=== PATIENT | male | born 1945 | race Hispanic/Latino ===

== ENCOUNTER 2017-10-14 15:42 | Emergency (ER) | payer SELFPAY ==
[2017-10-14 16:53] VITALS: BP 122/66
--- NOTE | 2017-10-14 16:54 | Emergency Department Report ---
ED General Adult HPI - General Chief complaint: Overdose Stated complaint: HEROINE OD Time Seen by Provider: 10/14/17 16:27 Source: patient, EMS Mode of arrival: Stretcher Limitations: No Limitations - History of Present Illness Initial comments: Patient is 71 years old male with past medical history of hypertension. Patient presented to the ER for evaluation of possible heroin injection by his girlfriend. Patient stated that he went to sleep in them to call ambulance and brought him here. Patient denied any symptoms specifically patient denied any chest pain, shortness of breath, fever, weakness or numbness or tingling sensation. Patient denied any bowel or bladder incontinence. As soon as a finish exam patient stated that he does not want to stay and he wanted sign AGAINST MEDICAL ADVICE because he thinks he is fine. I explained to him the dangers of leaving without a good period of observation and blood work. Patient stated that he understood the statements very well but he still wanted to go home he does not give a good explanation for why he is leaving but patient is alert oriented 3 able to make a sound decision. Patient left AGAINST MEDICAL ADVICE. - Related Data Allergies Allergy/AdvReac Type Severity Reaction Status Date / Time No Known Allergies Allergy Verified 10/14/17 16:00 ED Review of Systems ROS: Stated complaint: HEROINE OD Other details as noted in HPI Comment: All other systems reviewed and negative Constitutional: denies: chills, fever Respiratory: denies: cough, orthopnea, shortness of breath, SOB with exertion Cardiovascular: denies: chest pain, palpitations, dyspnea on exertion, orthopnea , edema, syncope, paroxysmal nocturnal dyspnea Gastrointestinal: denies: abdominal pain, nausea, vomiting, diarrhea, constipation, hematemesis, hematochezia Genitourinary: denies: urgency, frequency Skin: denies: rash, lesions, change in color, change in hair/nails Neurological: denies: headache, weakness Psychiatric: denies: anxiety, depression, auditory hallucinations, visual hallucinations, homicidal thoughts, suicidal thoughts ED Past Medical Hx - Past Medical History Previous Medical History?: No - Surgical History Past Surgical History?: No - Social History Smoking Status: Never Smoker Substance Use Type: None, Heroin ED Physical Exam - General Limitations: No Limitations General appearance: alert, in no apparent distress - Head Head exam: Present: atraumatic, normocephalic, normal inspection - Eye Eye exam: Present: normal appearance, PERRL - ENT ENT exam: Present: normal exam, normal orophraynx, mucous membranes moist - Neck Neck exam: Present: normal inspection, full ROM. Absent: tenderness, meningismus, lymphadenopathy, thyromegaly - Respiratory Respiratory exam: Present: normal lung sounds bilaterally. Absent: respiratory distress, wheezes, rales, rhonchi, stridor, chest wall tenderness, accessory muscle use, decreased breath sounds, prolonged expiratory - Cardiovascular Cardiovascular Exam: Present: regular rate, normal rhythm, normal heart sounds - GI/Abdominal GI/Abdominal exam: Present: soft, normal bowel sounds. Absent: distended, tenderness, guarding, rebound, rigid, organomegaly, mass, bruit, pulsatile mass , hernia - Extremities Exam Extremities exam: Present: normal inspection, full ROM, normal capillary refill. Absent: tenderness, pedal edema, joint swelling, calf tenderness - Back Exam Back exam: Present: normal inspection, full ROM. Absent: tenderness, CVA tenderness (R), CVA tenderness (L), muscle spasm, paraspinal tenderness, vertebral tenderness, rash noted - Neurological Exam Neurological exam: Present: alert, oriented X3, CN II-XII intact, normal gait, reflexes normal. Absent: motor sensory deficit - Psychiatric Psychiatric exam: Present: normal affect, normal mood. Absent: depressed, agitated, anxious, flat affect, manic, homicidal ideation, suicidal ideation - Skin Skin exam: Present: warm, intact ED Course Vital Signs 10/14/17 10/14/17 15:54 16:52 Temperature 98.7 F 98.2 F Pulse Rate 72 78 Respiratory 16 18 Rate Blood Pressure 133/70 Blood Pressure 122/66 [Right] O2 Sat by Pulse 94 99 Oximetry - Reevaluation(s) Reevaluation #1: 10/14/17 16:54 Patient denied any suicidal ideation or homicidal ideation. He stated that he used this just to get high and have fun with his girlfriend. Critical care attestation.: If time is entered above; I have spent that time in minutes in the direct care of this critically ill patient, excluding procedure time. ED Disposition Clinical Impression: Substance abuse Disposition: DC-07 LEFT AGAINST MED ADVICE Is pt being admited?: No Condition: Stable Instructions: Polysubstance Abuse (ED)
== END 2017-10-14 16:43 | disposition left against medical advice (07) ==
LOC: ED 15:42
DX: F19.10 Other psychoactive substance abuse, uncomplicated (principal); I10 Essential (primary) hypertension
CPT/HCPCS: 99283

== ENCOUNTER 2018-05-20 13:57 | Emergency (ER) | payer MEDICARE ==
[2018-05-20 14:19] VITALS: BP 137/59
[2018-05-20 15:38] LABS: Basophils # (Auto) 0.1 K/mm3 (0.0-0.1); Basophils % (Auto) 0.8 % (0.0-1.8); Eosinophils # (Auto) 0.4 K/mm3 (0.0-0.4); Eosinophils % (Auto) 5.3 % (0.0-4.3); Hemoglobin 12.3 gm/dl (11.8-15.2); Lymphocytes # (Auto) 2.2 K/mm3 (1.2-5.4); Lymphocytes % (Auto) 29.2 % (13.4-35.0); Mean Corpuscular HGB Conc 33 % (32-34); Mean Corpuscular Hemoglobin 30 pg (28-32); Mean Corpuscular Volume 89 fl (84-94); Monocytes # (Auto) 0.6 K/mm3 (0.0-0.8); Monocytes % (Auto) 7.7 % (0.0-7.3); Platelet Count 207 K/mm3 (140-440); Red Blood Count 4.15 M/mm3 (3.65-5.03); Red Cell Distribution Width 14.6 % (13.2-15.2)
[2018-05-20 16:06] LABS: Calcium 9.1 mg/dL (8.4-10.2)
--- NOTE | 2018-05-20 16:07 | Emergency Department Report ---
ED General Adult HPI - General Chief complaint: Extremity Injury, Lower Stated complaint: SENT BY DOCTOR FOR ULTRASOUND ON LEGS Time Seen by Provider: 05/20/18 15:59 Source: patient Mode of arrival: Wheelchair Limitations: Physical Limitation - History of Present Illness Initial comments: SENT BY PCP FOR ULTRASOUND OF LEGS TO RO DVT NO CP NO SOB -: Gradual Location: lower extremity Radiation: non-radiation Associated Symptoms: denies other symptoms. denies: confusion, chest pain, cough, diaphoresis, fever/chills, headaches, loss of appetite, malaise, nausea/ vomiting, rash, seizure, shortness of breath, syncope, weakness Treatments Prior to Arrival: none - Related Data Allergies Allergy/AdvReac Type Severity Reaction Status Date / Time No Known Allergies Allergy Verified 10/14/17 16:00 ED Review of Systems ROS: Stated complaint: SENT BY DOCTOR FOR ULTRASOUND ON LEGS Other details as noted in HPI Comment: All other systems reviewed and negative Constitutional: denies: chills, fever Eyes: denies: eye pain ENT: denies: ear pain, throat pain Respiratory: denies: cough, orthopnea, shortness of breath, SOB with exertion, SOB at rest, stridor Cardiovascular: denies: chest pain, palpitations, dyspnea on exertion, orthopnea Endocrine: denies: excessive sweating, flushing, intolerance to cold, intolerance to heat Gastrointestinal: denies: abdominal pain, nausea, vomiting Genitourinary: denies: urgency, dysuria Musculoskeletal: other (LEG SWELLING). denies: back pain, joint swelling, arthralgia Skin: denies: rash, lesions Neurological: denies: headache, weakness Psychiatric: denies: anxiety, depression Hematological/Lymphatic: denies: easy bleeding ED Past Medical Hx - Past Medical History Hx Hypertension: Yes - Surgical History Past Surgical History?: No Additional Surgical History: RIGHT KNEE - Family History Family history: no significant - Social History Smoking Status: Never Smoker Substance Use Type: None ED Physical Exam - General Limitations: Physical Limitation General appearance: alert, in no apparent distress - Head Head exam: Present: normocephalic - Eye Eye exam: Present: normal appearance Pupils: Present: normal accommodation - ENT ENT exam: Present: mucous membranes moist - Neck Neck exam: Present: normal inspection - Respiratory Respiratory exam: Present: normal lung sounds bilaterally - Cardiovascular Cardiovascular Exam: Present: regular rate - GI/Abdominal GI/Abdominal exam: Present: soft, normal bowel sounds - Rectal Rectal exam: Present: deferred - Extremities Exam Extremities exam: Present: normal inspection, full ROM, normal capillary refill , pedal edema (TR B), other (PLUS2 DP PT B). Absent: tenderness, joint swelling , calf tenderness (NEG HOMAS) - Back Exam Back exam: Present: normal inspection, full ROM. Absent: tenderness, CVA tenderness (R) - Neurological Exam Neurological exam: Present: alert, oriented X3, CN II-XII intact, normal gait. Absent: motor sensory deficit - Psychiatric Psychiatric exam: Present: normal affect, normal mood. Absent: depressed, agitated - Skin Skin exam: Present: warm, dry, intact, normal color. Absent: rash, cyanosis, diaphoretic ED Course Vital Signs 05/20/18 14:12 Temperature 98.7 F Pulse Rate 53 L Respiratory 20 Rate Blood Pressure 137/59 O2 Sat by Pulse 96 Oximetry ED Medical Decision Making - Lab Data Result diagrams: 05/20/18 15:31 05/20/18 15:31 - EKG Data -: EKG Interpreted by Me EKG shows normal: sinus rhythm - EKG Data Interpretation: no acute changes - Radiology Data Radiology results: report reviewed, image reviewed - Differential Diagnosis RO DVT SENT BY MD Critical care attestation.: If time is entered above; I have spent that time in minutes in the direct care of this critically ill patient, excluding procedure time. ED Disposition Clinical Impression: Leg swelling Disposition: DC-01 TO HOME OR SELFCARE Is pt being admited?: No Does the pt Need Aspirin: No Condition: Stable Additional Instructions: FOLLOW UP WITH PCP IN AM. LET HIM KNOW YOUR ULTRASOUND WAS NEG FOR DVT. HE CAN OBTAIN COPIES OF ALL LABS BY CALLING US FOR RECORDS DIET PER ROUTINE ACTIVITY TOLERATED HYDRATE WELL MEDS PER ROUTINE. Referrals: PRIMARY CARE, [Primary Care Provider] - 3-5 Days Time of Disposition: 19:29
--- NOTE | 2018-05-20 16:50 | XRay Report ---
FINAL REPORT EXAM: XR CHEST ROUTINE 2V HISTORY: sob TECHNIQUE: upright single view chest PRIORS: None. FINDINGS: Cardiac and mediastinal contours are unremarkable. No focal pulmonary infiltrate is identified. No pleural fluid collection seen. Pulmonary vasculature is unremarkable. Noted is a left shoulder prosthesis. IMPRESSION: Left shoulder prosthesis No acute abnormality identified in the chest
--- NOTE | 2018-05-22 14:27 | Vascular Lab Report ---
LOWER EXTREMITY VENOUS DUPLEX: REASON FOR EXAM: Pain and swelling of the lower extremities. COMMENTS ON THE RIGHT: All veins visualized are freely compressible without evidence of internal echogenicity. Flow is spontaneous and phasic throughout. 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 COMMENTS ON THE LEFT: All veins visualized are freely compressible without evidence of internal echogenicity. Flow is spontaneous and phasic throughout. A soft tissue change in the left knee area is consistent with a Berg's cyst. IMPRESSION: No evidence of acute or chronic deep venous thrombosis in either lower extremity. 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 A soft tissue change in the left knee area is consistent with a Berg's cyst.
== END 2018-05-20 19:45 | disposition home or self-care (01) ==
LOC: ED 13:57
DX: M79.89 Other specified soft tissue disorders (principal); I10 Essential (primary) hypertension
CPT/HCPCS: 36415; 71046; 80048; 83880; 85025; 93970; 99284

== ENCOUNTER 2020-07-25 12:18 | Emergency (ER) | payer MEDICARE ==
--- NOTE | 2020-07-25 14:28 | Emergency Department Report ---
<SHANE FAGAN - Last Filed: 07/25/20 22:10> ED Altered Mental Status HPI - General Chief Complaint: Altered Mental Status Stated Complaint: NARCOTIC USE Time Seen by Provider: 07/25/20 13:56 - Related Data Previous Rx's Medication Instructions Recorded Last Taken Type Potassium Chloride [K-Dur] 20 meq PO BID #6 tab 07/25/20 Unknown Rx Allergies Allergy/AdvReac Type Severity Reaction Status Date / Time No Known Allergies Allergy Verified 10/14/17 16:00 ED Past Medical Hx - Medications Home Medications: Home Medications Medication Instructions Recorded Confirmed Last Taken Type Potassium Chloride [K-Dur] 20 meq PO BID #6 tab 07/25/20 Unknown Rx ED Course - Reevaluation(s) Reevaluation #2: 07/25/20 22:10 At this time I checked on the patient and he is wide-awake and try to pack of his thing so that he can attempt to go home. I asked him why he was so sleepy and if he had taken too many of his medications he stated that there have been a lot of arguing at his house for the last several days. Patient states he has been awake for approximately 72 hours. He states once he finally went to sleep he was so tired it was hard to wake him. Patient states he is taken the prescribed dose of all of his medications. But the patient states he is well is well rested at this time and would like to go home. Patient be discharged home at this time. - Lab Data Result diagrams: 07/25/20 14:36 07/25/20 14:36 ED Disposition Clinical Impression: Opioid overdose, Chronic pain, Methadone use, Hypokalemia, Sleep deprivation Disposition: DC-01 TO HOME OR SELFCARE Is pt being admited?: No Does the pt Need Aspirin: No Condition: Stable Instructions: Hypokalemia, Chronic Pain, Adult, Opioid Overdose Additional Instructions: Take the medication as prescribed. Follow-up with your doctor or doctor/clinic provided. Return if symptoms worsen as indicated by your discharge instructions. Prescriptions: Potassium Chloride [K-Dur] 20 meq PO BID #6 tab Referrals: PRIMARY CAREMD [Primary Care Provider] - 3-5 Days PANCHO NAILS MD [Staff Physician] - 3-5 Days Time of Disposition: 22:12 <KARTIK WHEATLEY - Last Filed: 07/26/20 22:38> ED Altered Mental Status HPI - General Source: patient, EMS Mode of arrival: Stretcher Limitations: No Limitations - History of Present Illness Initial Comments: 74-year-old male with chronic pain currently on methadone and oxycodone presents to the hospital with episode of alteration in mental status. I called to speak to patient's daughter on the phone who states that patient was excessively drowsy this morning. She was intimately able to arouse him but he will fall right back to sleep. Patient given 2 mg of Narcan by EMS with improvement in mental status. Patient uses a wheelchair due to chronic leg pain with history of right knee replacement. He complains of bilateral lower extremity leg edema for at least 2 months and is currently on Lasix. He states his leg edema actually better than usual. As per previous medical record review patient has had leg edema LE since 2018 and was ruled out for DVT at that time and on a separate visit in 2018 he presented here status post heroin overdose. Patient denies intentional suicidal ideation and does not recall what happened today and why he is in the hospital. He states he typically takes Roxicodone 20 mg 3 times a day and has already taken 2 doses today. He did not mention methadone use initially. He currently complains of chronic bilateral lower extremity pain. Daughter states patient has not been exhibiting suicidal behavior. Patient states he s is drowsy because he has not been sleeping much lately. Patient's daughter number is [phone] ED Review of Systems ROS: Stated complaint: NARCOTIC USE Other details as noted in HPI Comment: All other systems reviewed and negative ED Past Medical Hx - Past Medical History Hx Hypertension: Yes - Surgical History Additional Surgical History: RIGHT KNEE - Social History Smoking Status: Current Every Day Smoker ED Physical Exam - General Limitations: No Limitations - Other Other exam information: General: No acute distress Head: Atraumatic Eyes: normal appearance ENT: Moist mucous membranes Neck: Normal appearance, no midline tenderness Chest: Clear to auscultation bilaterally CV: Regular rate and rhythm Abdomen: Soft, normal bowel sounds, nontender, nondistended, no rebound or guarding Back: Normal inspection Extremity: 1-2+ pitting bilateral lower extremity edema, no leg asymmetry or calf tenderness Neuro: Alert O x 3, no facial asymmetry, speech clear, no focal deficit, patient chronically has 5/5 upper and lower extremity strength when tested Psych: Appropriate behavior Skin: Keloid formation to anterior chest ED Course Vital Signs 07/25/20 07/25/20 13:30 20:00 Temperature 97.7 F 97.8 F Pulse Rate 94 H 90 Respiratory 18 20 Rate Blood Pressure 129/53 128/61 [Right] O2 Sat by Pulse 98 97 Oximetry - Reevaluation(s) Reevaluation #1: 07/25/20 18:49 Patient was fairly alert during initial assessment then throughout the rest of her ED stay patient relatively easily arousable to tactile stimulation but then falls back asleep. Room air saturation 94 to 98%. - Lab Data Result diagrams: 07/25/20 14:36 07/25/20 14:36 Lab Results 07/25/20 07/25/20 07/25/20 Range/Units 14:36 14:36 14:36 WBC 13.1 H (4.5-11.0) K/mm3 RBC 4.55 (3.65-5.03) M/mm3 Hgb 13.5 (11.8-15.2) gm/dl Hct 40.9 (35.5-45.6) % MCV 90 (84-94) fl MCH 30 (28-32) pg MCHC 33 (32-34) % RDW 14.6 (13.2-15.2) % Plt Count 193 (140-440) K/mm3 Lymph % (Auto) 10.6 L (13.4-35.0) % Branch % (Auto) 6.7 (0.0-7.3) % Eos % (Auto) 2.5 (0.0-4.3) % Baso % (Auto) 0.4 (0.0-1.8) % Lymph # (Auto) 1.4 (1.2-5.4) K/mm3 Branch # (Auto) 0.9 H (0.0-0.8) K/mm3 Eos # (Auto) 0.3 (0.0-0.4) K/mm3 Baso # (Auto) 0.1 (0.0-0.1) K/mm3 Seg Neutrophils % 79.8 H (40.0-70.0) % Seg Neutrophils # 10.4 H (1.8-7.7) K/mm3 Sodium 137 (137-145) mmol/L Potassium 2.7 L* (3.6-5.0) mmol/L Chloride 94.9 L (98-107) mmol/L Carbon Dioxide 28 (22-30) mmol/L Anion Gap 17 mmol/L BUN 55 H (9-20) mg/dL Creatinine 1.3 (0.8-1.3) mg/dL Estimated GFR 54 ml/min BUN/Creatinine Ratio 42 % Glucose 118 H (75-100) mg/dL Calcium 9.4 (8.4-10.2) mg/dL Magnesium (1.7-2.3) mg/dL Total Bilirubin 0.40 (0.1-1.2) mg/dL AST 31 (5-40) units/L ALT 22 (7-56) units/L Alkaline Phosphatase 83 (35-129) units/L NT-Pro-B Natriuret Pep 304.0 (0-900) pg/mL Total Protein 8.1 (6.3-8.2) g/dL Albumin 4.1 (3.9-5) g/dL Albumin/Globulin Ratio 1.0 % Urine Color (Yellow) Urine Turbidity (Clear) Urine pH (5.0-7.0) Ur Specific [place] (1.003-1.030) Urine Protein (Negative) mg/dL Urine Glucose (UA) (Negative) mg/dL Urine Ketones (Negative) mg/dL Urine Blood (Negative) Urine Nitrite (Negative) Ur Reducing Substances Urine Bilirubin (Negative) Urine Ictotest (Negative) Urine Urobilinogen (<2.0) mg/dL Ur Leukocyte Esterase (Negative) Urine WBC (Auto) (0.0-6.0) /HPF Urine RBC (Auto) (0.0-6.0) /HPF U Epithel Cells (Auto) (0-13.0) /HPF Hyaline Casts /LPF Urine Mucus /HPF Salicylates < 0.3 L (2.8-20.0) mg/dL Urine Opiates Screen Urine Methadone Screen Acetaminophen (10.0-30.0) ug/mL Ur Barbiturates Screen Ur Phencyclidine Scrn Ur Amphetamines Screen U Benzodiazepines Scrn Urine Cocaine Screen U Marijuana (THC) Screen Drugs of Abuse Note Plasma/Serum Alcohol (0-0.07) % 07/25/20 07/25/20 07/25/20 Range/Units 14:36 14:36 Unknown WBC (4.5-11.0) K/mm3 RBC (3.65-5.03) M/mm3 Hgb (11.8-15.2) gm/dl Hct (35.5-45.6) % MCV (84-94) fl MCH (28-32) pg MCHC (32-34) % RDW (13.2-15.2) % Plt Count (140-440) K/mm3 Lymph % (Auto) (13.4-35.0) % Branch % (Auto) (0.0-7.3) % Eos % (Auto) (0.0-4.3) % Baso % (Auto) (0.0-1.8) % Lymph # (Auto) (1.2-5.4) K/mm3 Branch # (Auto) (0.0-0.8) K/mm3 Eos # (Auto) (0.0-0.4) K/mm3 Baso # (Auto) (0.0-0.1) K/mm3 Seg Neutrophils % (40.0-70.0) % Seg Neutrophils # (1.8-7.7) K/mm3 Sodium (137-145) mmol/L Potassium (3.6-5.0) mmol/L Chloride (98-107) mmol/L Carbon Dioxide (22-30) mmol/L Anion Gap mmol/L BUN (9-20) mg/dL Creatinine (0.8-1.3) mg/dL Estimated GFR ml/min BUN/Creatinine Ratio % Glucose (75-100) mg/dL Calcium (8.4-10.2) mg/dL Magnesium (1.7-2.3) mg/dL Total Bilirubin (0.1-1.2) mg/dL AST (5-40) units/L ALT (7-56) units/L Alkaline Phosphatase (35-129) units/L NT-Pro-B Natriuret Pep (0-900) pg/mL Total Protein (6.3-8.2) g/dL Albumin (3.9-5) g/dL Albumin/Globulin Ratio % Urine Color Yellow (Yellow) Urine Turbidity Clear (Clear) Urine pH 6.0 (5.0-7.0) Ur Specific [place] 1.010 (1.003-1.030) Urine Protein <15 mg/dl (Negative) mg/dL Urine Glucose (UA) Negative (Negative) mg/dL Urine Ketones Negative (Negative) mg/dL Urine Blood Negative (Negative) Urine Nitrite Negative (Negative) Ur Reducing Substances Not Reportable Urine Bilirubin Neg (Negative) Urine Ictotest Negative (Negative) Urine Urobilinogen < 2.0 (<2.0) mg/dL Ur Leukocyte Esterase Negative (Negative) Urine WBC (Auto) < 1.0 (0.0-6.0) /HPF Urine RBC (Auto) 1.0 (0.0-6.0) /HPF U Epithel Cells (Auto) < 1.0 (0-13.0) /HPF Hyaline Casts 1 /LPF Urine Mucus Few /HPF Salicylates (2.8-20.0) mg/dL Urine Opiates Screen Urine Methadone Screen Acetaminophen 5.0 L (10.0-30.0) ug/mL Ur Barbiturates Screen Ur Phencyclidine Scrn Ur Amphetamines Screen U Benzodiazepines Scrn Urine Cocaine Screen U Marijuana (THC) Screen Drugs of Abuse Note Plasma/Serum Alcohol < 0.01 (0-0.07) % 07/25/20 07/25/20 Range/Units Unknown Unknown WBC (4.5-11.0) K/mm3 RBC (3.65-5.03) M/mm3 Hgb (11.8-15.2) gm/dl Hct (35.5-45.6) % MCV (84-94) fl MCH (28-32) pg MCHC (32-34) % RDW (13.2-15.2) % Plt Count (140-440) K/mm3 Lymph % (Auto) (13.4-35.0) % Branch % (Auto) (0.0-7.3) % Eos % (Auto) (0.0-4.3) % Baso % (Auto) (0.0-1.8) % Lymph # (Auto) (1.2-5.4) K/mm3 Branch # (Auto) (0.0-0.8) K/mm3 Eos # (Auto) (0.0-0.4) K/mm3 Baso # (Auto) (0.0-0.1) K/mm3 Seg Neutrophils % (40.0-70.0) % Seg Neutrophils # (1.8-7.7) K/mm3 Sodium (137-145) mmol/L Potassium (3.6-5.0) mmol/L Chloride (98-107) mmol/L Carbon Dioxide (22-30) mmol/L Anion Gap mmol/L BUN (9-20) mg/dL Creatinine (0.8-1.3) mg/dL Estimated GFR ml/min BUN/Creatinine Ratio % Glucose (75-100) mg/dL Calcium (8.4-10.2) mg/dL Magnesium 2.20 (1.7-2.3) mg/dL Total Bilirubin (0.1-1.2) mg/dL AST (5-40) units/L ALT (7-56) units/L Alkaline Phosphatase (35-129) units/L NT-Pro-B Natriuret Pep (0-900) pg/mL Total Protein (6.3-8.2) g/dL Albumin (3.9-5) g/dL Albumin/Globulin Ratio % Urine Color (Yellow) Urine Turbidity (Clear) Urine pH (5.0-7.0) Ur Specific [place] (1.003-1.030) Urine Protein (Negative) mg/dL Urine Glucose (UA) (Negative) mg/dL Urine Ketones (Negative) mg/dL Urine Blood (Negative) Urine Nitrite (Negative) Ur Reducing Substances Urine Bilirubin (Negative) Urine Ictotest (Negative) Urine Urobilinogen (<2.0) mg/dL Ur Leukocyte Esterase (Negative) Urine WBC (Auto) (0.0-6.0) /HPF Urine RBC (Auto) (0.0-6.0) /HPF U Epithel Cells (Auto) (0-13.0) /HPF Hyaline Casts /LPF Urine Mucus /HPF Salicylates (2.8-20.0) mg/dL Urine Opiates Screen Presumptive negative Urine Methadone Screen Presumptive positive Acetaminophen (10.0-30.0) ug/mL Ur Barbiturates Screen Presumptive negative Ur Phencyclidine Scrn Presumptive negative Ur Amphetamines Screen Presumptive negative U Benzodiazepines Scrn Presumptive negative Urine Cocaine Screen Presumptive negative U Marijuana (THC) Screen Presumptive negative Drugs of Abuse Note Disclamer Plasma/Serum Alcohol (0-0.07) % - Radiology Data Radiology results: report reviewed CHEST 1 VIEW 2:25 PM INDICATION / CLINICAL INFORMATION: Opiate overdose. Leg pain/edema COMPARISON: 05/20/18. FINDINGS: SUPPORT DEVICES: None. HEART / MEDIASTINUM: The heart size and pulmonary vasculature are normal. LUNGS / PLEURA: Mild linear parenchymal opacity in the right lower lung. The lungs are otherwise clear No pneumothorax. ADDITIONAL FINDINGS: Left shoulder prosthesis. IMPRESSION: Mild subsegmental atelectasis in the right lower lung. CT head/brain wo con INDICATION / CLINICAL INFORMATION: 74 years Male; transient ams. TECHNIQUE: Routine CT head without contrast. All CT scans at this location are performed using CT dose reduction for ALARA by means of automated exposure control. COMPARISON: None. FINDINGS: BRAIN / INTRACRANIAL CONTENTS: No acute hemorrhage, mass effect, midline shift, hydrocephalus, or acute, large territorial infarct. No signs of significant atrophy or chronic infarct. There are mild areas of decreased attenuation in the white matter of the cereb ral hemispheres. These are nonspecific findings and may be related to microangiopathy (hypertension, diabetes, atherosclerosis), given the patient's age. CRANIOCERVICAL JUNCTION: No significant abnormality. ORBITS: No significant abnormality of visualized orbits. SINUSES / MASTOIDS: No significant abnormality in the visualized paranasal sinuses or mastoid air cells. ADDITIONAL FINDINGS: Atherosclerotic disease is seen in the anterior and posterior circulation. Small sebaceous cyst seen in the subcutaneous soft tissues superficial to the posterior parietal bone on the right. IMPRESSION: 1. No focal mass, hemorrhage, hydrocephalus, or acute, large territorial infarct. - Medical Decision Making Patient presents to the hospital with increased drowsiness likely secondary to taking too much of his prescribed methadone and oxycodone. Collateral i nformation also obtained from patient's daughter who lives with him. Patient and daughter both deny suicidal ideation or intentional overdose. Patient ED work-up unremarkable with exception of hypokalemia. CT head unremarkable. Patient sleeping throughout ED stay with adequate oxygenation and arousable to tactile stimulation. Patient be signed out to my colleague Dr. Fagan to reassess mental status prior to discharging patient is more awake he will be discharged back home. Hypokalemia likely secondary to Lasix use. Potassium will prescribe her initial dose provided in the ED Critical Care Time: No Critical care attestation.: If time is entered above; I have spent that time in minutes in the direct care of this critically ill patient, excluding procedure time. ED Disposition Is pt being admited?: No Does the pt Need Aspirin: No
--- NOTE | 2020-07-25 14:50 | XRay Report ---
CHEST 1 VIEW 2:25 PM INDICATION / CLINICAL INFORMATION: Opiate overdose. Leg pain/edema COMPARISON: 05/20/18. FINDINGS: SUPPORT DEVICES: None. HEART / MEDIASTINUM: The heart size and pulmonary vasculature are normal. LUNGS / PLEURA: Mild linear parenchymal opacity in the right lower lung. The lungs are otherwise basim r No pneumothorax. ADDITIONAL FINDINGS: Left shoulder prosthesis. IMPRESSION: Mild subsegmental atelectasis in the right lower lung. Signer Name: Kelby Alarcno MD Signed: 07/25/2020 2:45 PM Workstation Name: [id number]
[2020-07-25 15:49] LABS: Albumin 4.1 g/dL (3.9-5); Calcium 9.4 mg/dL (8.4-10.2)
[2020-07-25] MEDS ORDERED: POTASSIUM CHLORIDE ER 20 MEQ TAB PO ONE (16:05)
--- NOTE | 2020-07-25 16:10 | Cat Scan Report ---
CT head/brain wo con INDICATION / CLINICAL INFORMATION: 74 years Male; transient ams. TECHNIQUE: Routine CT head without contrast. All CT scans at this location are performed using CT dos e reduction for ALARA by means of automated exposure control. COMPARISON: None. FINDINGS: BRAIN / INTRACRANIAL CONTENTS: No acute hemorrhage, mass effect, midline shift, hydrocephalus, or acu te, large territorial infarct. No signs of significant atrophy or chronic infarct. There are mild areas of decreased attenuation in the white matter of the cerebral hemispheres. These are nonspecific findings and may be related to microangiopathy (hypertension, diabetes, atheroscleros is), given the patient's age. CRANIOCERVICAL JUNCTION: No significant abnormality. ORBITS: No significant abnormality of visualized orbits. SINUSES / MASTOIDS: No significant abnormality in the visualized paranasal sinuses or mastoid air lachelle ls. ADDITIONAL FINDINGS: Atherosclerotic disease is seen in the anterior and posterior circulation. Small sebaceous cyst seen in the subcutaneous soft tissues superficial to the posterior parietal bone on the right. IMPRESSION: 1. No focal mass, hemorrhage, hydrocephalus, or acute, large territorial infarct. Signer Name: Manuel Bergman MD, III Signed: 07/25/2020 4:06 PM Workstation Name: [id number]
[2020-07-25 17:17] LABS: Hematocrit 40.9 % (35.5-45.6); Hemoglobin 13.5 gm/dl (11.8-15.2); Lymphocytes % (Auto) 10.6 % (13.4-35.0); Mean Corpuscular HGB Conc 33 % (32-34); Mean Corpuscular Volume 90 fl (84-94); Monocytes % (Auto) 6.7 % (0.0-7.3); Platelet Count 193 K/mm3 (140-440); Red Blood Count 4.55 M/mm3 (3.65-5.03); Red Cell Distribution Width 14.6 % (13.2-15.2)
[2020-07-25 17:18] LABS: Basophils # (Auto) 0.1 K/mm3 (0.0-0.1); Basophils % (Auto) 0.4 % (0.0-1.8); Eosinophils # (Auto) 0.3 K/mm3 (0.0-0.4); Eosinophils % (Auto) 2.5 % (0.0-4.3); Lymphocytes # (Auto) 1.4 K/mm3 (1.2-5.4); Monocytes # (Auto) 0.9 K/mm3 (0.0-0.8)
[2020-07-25 18:00] LABS: Amphetamine Screen,Urine PRESUMPTIVE NEGATIVE; Benzodiazepines Screen,Urine PRESUMPTIVE NEGATIVE; Cannabinoid Screen,Urine PRESUMPTIVE NEGATIVE; Cocaine Screen,Urine PRESUMPTIVE NEGATIVE; Methadone Screen,Urine PRESUMPTIVE POSITIVE; Opiate Screen,Urine PRESUMPTIVE NEGATIVE
[2020-07-25 18:45] LABS: Hyaline Casts,Urine 1 /LPF; WBC,Urine < 1.0 /HPF (0.0-6.0)
[2020-07-25 18:56] LABS: Blood,Urine Negative (Negative); Color,Urine Yellow (Yellow)
[2020-07-25 18:57] LABS: Protein,Urine <15 mg/dL mg/dL (Negative); Urobilinogen,Urine < 2.0 mg/dL (<2.0)
[2020-07-25 19:03] LABS: Bilirubin,Urine NEG (Negative); Mucus,Urine FEW /HPF
[2020-07-25 19:06] LABS: Ictotest,Urine Negative (Negative)
[2020-07-26 00:27] VITALS: BP 128/61
== END 2020-07-25 21:00 | disposition home or self-care (01) ==
LOC: ED 12:18
DX: T40.2X1A Poisoning by other opioids, accidental (unintentional), initial encounter (principal); E87.6 Hypokalemia; Z72.820 Sleep deprivation; F11.90 Opioid use, unspecified, uncomplicated; G89.29 Other chronic pain; I10 Essential (primary) hypertension; F17.200 Nicotine dependence, unspecified, uncomplicated; Z98.890 Other specified postprocedural states; Y92.89 Other specified places as the place of occurrence of the external cause
CPT/HCPCS: 36415; 70450; 71045; 80053; 80307; 80320; 81001; 83735; 83880; 85025; G0480